=== PATIENT | female | born 1940 | race Caucasian/White ===

== ENCOUNTER 2022-09-05 10:20 | Day surgery (SDC) | payer MEDICARE, OTHER ==
[2022-09-05] VITALS (16 sets, daily range): BP systolic 133–148; BP diastolic 55–80; PULSE 54–66; RESP 14–16; TEMP 98.3; O2SAT 95–99
[~2022-09-05] VITALS: Ht 154.9 cm; Wt 70.4 kg
[2022-09-05] MEDS ORDERED: fentaNYL/PF 50MCG/1 ML 2ML syringe IV ONE (10:50)
[2022-09-05] MEDS ORDERED: MIDAZolam 1mg/ml 10ml vial IV ONE (10:50)
[2022-09-05] MEDS ORDERED: fiber PO (11:05)
[2022-09-05] MEDS ORDERED: DIPH25TA2 PO (11:05)
[2022-09-05] MEDS ORDERED: SIMV-42 PO (11:05)
[2022-09-05] MEDS ORDERED: GABA300T25 PO (11:05)
[2022-09-05] MEDS ORDERED: ACET-2006 PO (11:05)
[2022-09-05] MEDS ORDERED: BENA40TA73 PO (11:05)
[2022-09-05] MEDS ORDERED: OMEP20CA16 PO (11:05)
[2022-09-05] MEDS ORDERED: MULT-1249 PO (11:05)
[2022-09-05] MEDS ORDERED: SOTA80TA PO (11:05)
[2022-09-05] MEDS ORDERED: WARF4TAB69 PO (11:05)
[2022-09-05] MEDS ORDERED: AMLO2.5T5 PO (11:07)
== END 2022-09-05 15:05 | disposition home or self-care (01) ==
LOC: SSTAY O 10:20
PROVIDERS: ATTEND Student in an Organized Health Care Education/Training Program
DX: I48.91 Unspecified atrial fibrillation (principal); I08.1 Rheumatic disorders of both mitral and tricuspid valves; I10 Essential (primary) hypertension; E78.5 Hyperlipidemia, unspecified; I65.29 Occlusion and stenosis of unspecified carotid artery; I27.20 Pulmonary hypertension, unspecified; Z79.01 Long term (current) use of anticoagulants; Z79.899 Other long term (current) drug therapy; Z88.1 Allergy status to other antibiotic agents
CPT/HCPCS: 93312; 93325; 94760; J2250; J3010; J7030; A4620

== ENCOUNTER 2023-02-15 08:28 | Inpatient (IN) | payer MEDICARE, OTHER ==
[2023-02-15] VITALS (15 sets, daily range): BP systolic 141–183; BP diastolic 60–84; PULSE 53–96; RESP 9–17; TEMP 97.7–98.2; O2SAT 96–100
[~2023-02-15] VITALS: Ht 154.9 cm; Wt 68.3 kg
[~2023-02-15 08:28] MED LIST: ACET-2006 PO; AMLO2.5T5 PO; BENA40TA73 PO; CALC600T14 PO; CHOL10008 PO; DIPH25TA2 PO; DOCUMENT DATE & TIME OF BETA-BLOCKER PO ONE; GABA300T25 PO; HYDR-4070 PO; MULT-1249 PO; OMEP20CA16 PO; SIMV-42 PO; SOTA80TA PO; WARF4TAB69 PO; cefazolin 2gm/D5W 100mL 100 ML IV ONE; famotidine 20mg tablet PO ONE; fiber PO; ondansetron/PF 4mg/2ml inj IV PRN; protamine sulfate 10mg/ml inj. ONE; ringers solution, lacted 1,000 ML IV SCH; vancomycin/NS 1 GM in NS 250 ML IV ONE
[2023-02-15 10:15] LABS: BASOPHILS % (AUTO) 0.8 % (0-1); EOSINOPHILS # (AUTO) 0.1 X10'3 (0-0.9); EOSINOPHILS % (AUTO) 1.3 % (0-6); LYMPHOCYTES # (AUTO) 1.8 X10'3 (1.1-4.8); LYMPHOCYTES % (AUTO) 30.4 % (21-51); MEAN CORPUSCULAR HEMOGLOBIN 30.5 PG (27.0-31.0); MEAN CORPUSCULAR VOLUME 92.5 FL (78-98); MEAN PLATELET VOLUME 7.3 FL (7.4-10.4); MONOCYTES # (AUTO) 0.8 X10'3 (0-0.9); MONOCYTES % (AUTO) 13.7 % (2-12); NEUTROPHILS # (AUTO) 3.2 X10'3 (1.8-7.7); NEUTROPHILS % (AUTO) 53.8 % (42-75); PRE OP HEMATOCRIT 37.9 % (35.0-45.0); PRE OP HEMOGLOBIN 12.5 g/dL (12.0-16.0); PRE OP PLATELET COUNT 293 X10'3 (140-440); RED CELL DISTRIBUTION WIDTH 14.7 % (11.5-14.5)
[2023-02-15 10:28] LABS: INR 1.2 INR; PRE OP PARTIAL THROMB. TIME 28 SECONDS (22-32); PROTHROMBIN TIME 12.5 SECONDS (9.0-12.0)
[2023-02-15 10:41] LABS: ALBUMIN 3.6 G/DL (3.4-5.0); ALKALINE PHOSPHATASE 72 IU/L (46-116); BLOOD UREA NITROGEN 19 MG/DL (7-18); BUN/CREATININE RATIO 22.6 (10.0-20.0); CALCIUM 9.1 MG/DL (8.5-10.1); CHLORIDE 104 MMOL/L (99-107); CREATININE 0.84 MG/DL (0.40-0.90); PRE OP ALT 19 U/L (30-65); PRE OP ANION GAP 10 (8-16); PRE OP AST 22 U/L (10-37); PRE OP BILIRUB, TOTAL 0.4 MG/DL (0.0-1.0); PRE OP GLUCOSE 123 MG/DL (70-104); PRE OP POTASSIUM 3.9 MMOL/L (3.4-5.1); PRE OP SODIUM 139 MMOL/L (135-145); TOTAL CARBON DIOXIDE 25.1 MMOL/L (24-32); TOTAL PROTEIN 7.3 G/DL (6.4-8.2); eCRCL 39 ML/MIN; eGFR 65 ML/MIN
[2023-02-15] MEDS ORDERED: morphine 4 MG/ML inj SYRINge IV PRN (12:40)
[2023-02-15] MEDS ORDERED: morphine 2 MG/ML inj. syringe IV PRN (12:40)
[2023-02-15] MEDS ORDERED: meperidine/PF 25mg/ml syringe IV PRN ×2 (12:40)
[2023-02-15] MEDS ORDERED: ondansetron/PF 4mg/2ml inj IV PRN ×2 (12:40→15:00)
[2023-02-15] MEDS ORDERED: ringers solution, lacted 1,000 ML IV SCH (12:40)
[2023-02-15] MEDS ORDERED: proCHLORperazine 10 MG/2 ml inj IV PRN ×2 (12:40→15:00)
[2023-02-15] MEDS ORDERED: acetaminophen 325mg tablet PO PRN ×2 (13:30→15:00)
[2023-02-15] MEDS ORDERED: iohexol 350 MG/ML 50ML vial IV ONE ×2 (13:34)
[2023-02-15] MEDS ORDERED: sevoflurane 250ml liquid IH ONE (13:44)
[2023-02-15] MEDS ORDERED: fentaNYL/PF 50MCG/1 ML 2ML syringe ONE (13:46)
[2023-02-15] MEDS ORDERED: midazolam 1 mg/ML 2ml injection ONE (13:47)
[2023-02-15] MEDS ORDERED: rocuronium 10mg/ml inj IV ONE (13:47)
[2023-02-15] MEDS ORDERED: propofol inj 20 ML IV ONE (13:47)
[2023-02-15] MEDS ORDERED: dexamethasone sod phosphate 4mg/ml inj. ONE (14:00)
[2023-02-15] MEDS ORDERED: heparin 1,000unit/ml 10ml vial 10 ML ONE (14:00)
[2023-02-15] MEDS ORDERED: ondansetron/PF 4mg/2ml inj ONE (14:09)
[2023-02-15] MEDS ORDERED: glycopyrrolate 0.2mg/ml inj ONE (14:51)
[2023-02-15] MEDS ORDERED: neostigmine methylsulfate 1 MG/ML 10ml vial ONE (14:51)
[2023-02-15] MEDS ORDERED: potassium Cl 20 mEq SR tablet PO PRN (15:00)
[2023-02-15] MEDS ORDERED: labetalol 20mg/4ml (5mg/ml) syringe IV PRN (15:00)
[2023-02-15] MEDS ORDERED: potassium Cl 40MEQ/270ML bag 250 ML IV PRN (15:00)
[2023-02-15] MEDS ORDERED: ALPRAZolam 0.25mg tablet PO PRN (15:00)
[2023-02-15] MEDS ORDERED: hydrALAZINE 20mg/ml inj. IV PRN (15:00)
[2023-02-15] MEDS ORDERED: potassium Cl 20mEq/100mL bag 100 ML IV PRN (15:00)
[2023-02-15] MEDS ORDERED: diphenhydrAMINE 25mg capsule PO PRN (15:00)
[2023-02-15] MEDS ORDERED: magnesium 2GM in 50ml NS 50 ML IV PRN (15:00)
[2023-02-15] MEDS ORDERED: pantoprazole 40mg Tablet.DR PO PRN (15:00)
[2023-02-15] MEDS: normal saline 1000ml 1,000 ML IV SCH (15:00)
[2023-02-15] MEDS ORDERED: potassium Cl 40MEQ/1/2NS 520ml 520 ML IV PRN (15:00)
[2023-02-15] MEDS ORDERED: potassium CL 10mEq/100ml bag 100 ML IV PRN (15:00)
[2023-02-15] MEDS ORDERED: docusate sod 100mg capsule PO PRN (15:00)
[2023-02-15] MEDS ORDERED: magnesium 4gm in 100ml NS 100 ML IV PRN (15:00)
[2023-02-15] MEDS: meperidine/PF 25mg/ml syringe IV PRN ×2 (15:18→15:39)
[2023-02-15] MEDS: sod chloride 0.9% 10ml flush syringe IV SCH (16:00)
[2023-02-15] MEDS ORDERED: non-formulary drug (Calcium Carbonate (Calcium) 1 TAB) PO SCH (20:00)
[2023-02-15] MEDS: sotalol HCl 40mg (1/2 tablet) PO SCH (20:50)
[2023-02-15] MEDS: hydrALAZINE 25 MG tablet PO SCH (20:51)
[2023-02-15] MEDS ORDERED: diphenhydrAMINE 25mg capsule PO SCH (21:00)
[2023-02-15] MEDS ORDERED: gabapentin 300mg capsule PO SCH (21:00)
[2023-02-16] MEDS: normal saline 1000ml 1,000 ML IV SCH (01:00)
[2023-02-16 02:00] VITALS: BP 138/63; PULSE 77; RESP 14; TEMP 97.1; O2SAT 96
[2023-02-16 06:05] LABS: BASOPHILS % (AUTO) 0.2 % (0-1); EOSINOPHILS % (AUTO) 0 % (0-6); HEMATOCRIT 34.3 % (35.0-45.0); HEMOGLOBIN 11.3 g/dl (12.0-16.0); LYMPHOCYTES # (AUTO) 1.7 X10'3 (1.1-4.8); LYMPHOCYTES % (AUTO) 23.2 % (21-51); MEAN CORPUSCULAR HEMOGLOBIN 30.5 PG (27.0-31.0); MEAN CORPUSCULAR HGB CONC 32.9 g/dL (33.0-36.5); MEAN CORPUSCULAR VOLUME 92.8 FL (78-98); MEAN PLATELET VOLUME 7.6 FL (7.4-10.4); MONOCYTES # (AUTO) 0.5 X10'3 (0-0.9); NEUTROPHILS % (AUTO) 69.6 % (42-75); PLATELET COUNT 269 X10'3 (140-440); RED CELL DISTRIBUTION WIDTH 14.7 % (11.5-14.5); WHITE BLOOD COUNT 7.1 X10'3 (4.5-11.0)
[2023-02-16 06:10] LABS: INR 1.1 INR; PROTHROMBIN TIME 11.4 SECONDS (9.0-12.0)
[2023-02-16 06:28] LABS: ALANINE AMINOTRANSFERASE 16 U/L (12-78); ALBUMIN 2.9 G/DL (3.4-5.0); ALBUMIN/GLOBULIN RATIO 0.9 (1.1-1.5); ALKALINE PHOSPHATASE 61 IU/L (46-116); ANION GAP 9 (8-16); ASPARTATE AMINO TRANSFERASE 17 U/L (10-37); BILIRUBIN,TOTAL 0.3 MG/DL (0.1-1.0); BLOOD UREA NITROGEN 14 MG/DL (7-18); BUN/CREATININE RATIO 17.5 (10.0-20.0); CALCIUM 8.8 MG/DL (8.5-10.1); CHLORIDE 103 MMOL/L (99-107); GLUCOSE 133 MG/DL (70-104); MAGNESIUM 1.8 MG/DL (1.5-2.4); PRO BRAIN NATRIURETIC PEPTIDE 892 PG/ML (0-450); SODIUM 137 MMOL/L (135-145); TOTAL CARBON DIOXIDE 25.2 MMOL/L (24-32); TOTAL PROTEIN 6.2 G/DL (6.4-8.2); eCRCL 41 ML/MIN; eGFR 69 ML/MIN
[2023-02-16 06:30] VITALS: BP 139/58; PULSE 70; RESP 17; TEMP 97.3; O2SAT 94
[2023-02-16] MEDS: hydrALAZINE 25 MG tablet PO SCH (07:30)
[2023-02-16] MEDS ORDERED: pantoprazole 40mg Tablet.DR PO SCH (07:30)
[2023-02-16] MEDS: sotalol HCl 40mg (1/2 tablet) PO SCH (07:31)
[2023-02-16] MEDS: sod chloride 0.9% 10ml flush syringe IV SCH ×2 (07:31)
[2023-02-16] MEDS ORDERED: FIBER PO SCH (08:00)
[2023-02-16] MEDS ORDERED: multivitamins, therapeutics tablet PO SCH (08:00)
[2023-02-16] MEDS ORDERED: lisinopril 20mg tablet PO SCH (08:00)
[2023-02-16] MEDS ORDERED: cholecalciferol (vitamin D3) 1,000 unit (25mcg) tablet PO SCH (08:00)
[2023-02-16] MEDS: amLODIPine 2.5mg tablet PO SCH ×2 (10:38→10:40)
[2023-02-16 10:40] VITALS: BP_SYST 105; PULSE 68
[2023-02-16] MEDS ORDERED: warfarin 4mg tablet PO SCH (21:00)
[2023-02-16] MEDS ORDERED: atorvastatin 10mg tablet PO SCH (21:00)
== END 2023-02-16 17:35 | disposition home or self-care (01) | DRG 274 ==
LOC: PAS IN 08:28 → PCU 3S 17:58
PROVIDERS: ADMIT Student in an Organized Health Care Education/Training Program; ATTEND Student in an Organized Health Care Education/Training Program
PROC: B24BZZ4 Ultrasonography of Heart with Aorta, Transesophageal (ICD-10-PCS; 2023-02-15)
PROC: 03HY32Z Insertion of Monitoring Device into Upper Artery, Percutaneous Approach (ICD-10-PCS; 2023-02-15)
PROC: 02L73DK Occlusion of Left Atrial Appendage with Intraluminal Device, Percutaneous Approach (ICD-10-PCS; principal; 2023-02-15 13:44)
DX: I48.0 Paroxysmal atrial fibrillation (principal); Z00.6 Encounter for examination for normal comparison and control in clinical research program; E78.5 Hyperlipidemia, unspecified; I10 Essential (primary) hypertension; Z91.09 Other allergy status, other than to drugs and biological substances; Z79.01 Long term (current) use of anticoagulants; I36.1 Nonrheumatic tricuspid (valve) insufficiency
CPT/HCPCS: 33340; 36415; 71045; 76937; 80053; 83735; 83880; 85025; 85347; 85610; 85730; 86885; 86900; 86901; 86920; 87081; 93005; 93308; 93312; 93325; A4615; A4618; A6258; A6449; C1760; C1889; C1893; C1894; G0378; J0690; J1100; J1644; J2175; J2250; J2405; J2704; J2710; J2720; J3010; J3370; J3490; J7030; J7040; J7120; Q0163; Q9967

== ENCOUNTER 2023-04-10 11:50 | Day surgery (SDC) | payer MEDICARE, OTHER ==
[~2023-04-10] VITALS: Ht 154.9 cm; Wt 66.2 kg
[2023-04-10] VITALS (11 sets, daily range): BP systolic 120–180; BP diastolic 50–74; PULSE 52–78; RESP 12–16; TEMP 98; O2SAT 94–98
[~2023-04-10 11:50] MED LIST changes: -DOCUMENT DATE & TIME OF BETA-BLOCKER PO ONE; -HYDR-4070 PO; +HYDR50TA46 PO; -cefazolin 2gm/D5W 100mL 100 ML IV ONE; -famotidine 20mg tablet PO ONE; -ondansetron/PF 4mg/2ml inj IV PRN; -protamine sulfate 10mg/ml inj. ONE; -ringers solution, lacted 1,000 ML IV SCH; -vancomycin/NS 1 GM in NS 250 ML IV ONE
[2023-04-10] MEDS ORDERED: MIDAZolam 1mg/ml 10ml vial IV ONE (12:15)
[2023-04-10] MEDS ORDERED: fentaNYL/PF 50MCG/1 ML 2ML syringe IV ONE (12:15)
[2023-04-10] MEDS ORDERED: normal saline 1000ml 1,000 ML IV PRN (12:15)
[2023-04-10 12:48] LABS: BASOPHILS % (AUTO) 0.8 % (0-1); EOSINOPHILS # (AUTO) 0.1 X10'3 (0-0.9); EOSINOPHILS % (AUTO) 0.9 % (0-6); HEMATOCRIT 37.2 % (35.0-45.0); HEMOGLOBIN 12.4 g/dl (12.0-16.0); LYMPHOCYTES # (AUTO) 1.9 X10'3 (1.1-4.8); LYMPHOCYTES % (AUTO) 32.2 % (21-51); MEAN CORPUSCULAR HEMOGLOBIN 30.2 PG (27.0-31.0); MEAN CORPUSCULAR HGB CONC 33.4 g/dL (33.0-36.5); MEAN CORPUSCULAR VOLUME 90.6 FL (78-98); MONOCYTES # (AUTO) 0.7 X10'3 (0-0.9); NEUTROPHILS # (AUTO) 3.2 X10'3 (1.8-7.7); NEUTROPHILS % (AUTO) 54.1 % (42-75); PLATELET COUNT 315 X10'3 (140-440); RED CELL DISTRIBUTION WIDTH 15.1 % (11.5-14.5); WHITE BLOOD COUNT 5.9 X10'3 (4.5-11.0)
[2023-04-10 12:56] LABS: ALBUMIN 3.5 G/DL (3.4-5.0); ANION GAP 8 (8-16); BLOOD UREA NITROGEN 14 MG/DL (7-18); BUN/CREATININE RATIO 16.1 (10.0-20.0); CALCIUM 8.3 MG/DL (8.5-10.1); CHLORIDE 105 MMOL/L (99-107); CREATININE 0.87 MG/DL (0.40-0.90); GLUCOSE 101 MG/DL (70-104); POTASSIUM 4.3 MMOL/L (3.5-5.1); SODIUM 139 MMOL/L (135-145); TOTAL CARBON DIOXIDE 25.6 MMOL/L (24-32); eCRCL 38 ML/MIN; eGFR 62 ML/MIN
[2023-04-10 13:04] LABS: APTT 33 SECONDS (22-32); INR 1.7 INR; PROTHROMBIN TIME 17.2 SECONDS (9.0-12.0)
== END 2023-04-10 15:45 | disposition home or self-care (01) ==
LOC: SSTAY O 11:50
PROVIDERS: ATTEND Student in an Organized Health Care Education/Training Program
DX: Z45.09 Encounter for adjustment and management of other cardiac device (principal); I48.91 Unspecified atrial fibrillation; E78.5 Hyperlipidemia, unspecified; I08.2 Rheumatic disorders of both aortic and tricuspid valves; I10 Essential (primary) hypertension; I65.29 Occlusion and stenosis of unspecified carotid artery; Z86.718 Personal history of other venous thrombosis and embolism; Z79.01 Long term (current) use of anticoagulants; Z79.899 Other long term (current) drug therapy
CPT/HCPCS: 36415; 80048; 85025; 85610; 85730; 93312; 93325; J7030